=== PATIENT | female | born 1995 | race American Indian/Alaskan Native ===

== ENCOUNTER 2016-03-14 16:36 | Emergency (ER) | payer OTHER ==
[2016-03-14 17:06] VITALS: BP 133/52
[2016-03-14 18:01] LABS: Bacteria,Urine 2+ /HPF (Negative); Bilirubin,Urine NEG (Negative); Blood,Urine NEG (Negative); Ketones,Urine NEG (Negative); Leukocyte Esterase,Urine LG (Negative); Mucus,Urine FEW /HPF; Nitrite,Urine NEG (Negative); Protein,Urine <15 mg/dL mg/dL (Negative)
[2016-03-14] MEDS ORDERED: ROCEPHIN IM ONE (18:29)
[2016-03-14] MEDS ORDERED: ZITHROMAX PO ONE (18:29)
[2016-03-14] MEDS ORDERED: XYLOCAINE 1% MPF 5 mL INFILTRATI ONE (18:29)
--- NOTE | 2016-03-14 18:35 | Emergency Department Report ---
ED Female HPI - General Chief complaint: Urogenital-Female Stated complaint: VAGINAL ITCHING/DISCHARGE Time Seen by Provider: 03/14/16 18:13 Source: patient Mode of arrival: Ambulatory Limitations: No Limitations - History of Present Illness Initial comments: Patient complains of "cottage cheese-like" discharge from her vaginal 1 week. Reports associated vaginal itching and burning, and lower pelvic pain. Denies fever, chills, flank pain, dysuria, urgency frequency. States took clindamycin left over that was prescribed to her over a year ago without relief. Report sexual activity with men only. LMP 02/20/16 - Related Data Previous Rx's Medication Instructions Recorded Last Taken Type Doxycycline [Vibramycin CAP] 100 mg PO Q12HR #14 capsule 03/14/16 Unknown Rx Fluconazole [Diflucan TAB] 150 mg PO ONCE #2 tablet 03/14/16 Unknown Rx Allergies Allergy/AdvReac Type Severity Reaction Status Date / Time No Known Allergies Allergy Verified 01/03/16 05:07 ED Review of Systems ROS: Stated complaint: VAGINAL ITCHING/DISCHARGE Other details as noted in HPI Comment: All other systems reviewed and negative ED Past Medical Hx - Past Medical History Previous Medical History?: No - Surgical History Past Surgical History?: No - Social History Smoking Status: Never Smoker Substance Use Type: None - Medications Home Medications: Home Medications Medication Instructions Recorded Confirmed Last Taken Type Doxycycline [Vibramycin CAP] 100 mg PO Q12HR #14 capsule 03/14/16 Unknown Rx Fluconazole [Diflucan TAB] 150 mg PO ONCE #2 tablet 03/14/16 Unknown Rx ED Physical Exam - General Limitations: No Limitations General appearance: alert, in no apparent distress - Head Head exam: Present: atraumatic, normocephalic - Eye Eye exam: Present: normal appearance, PERRL, EOMI - Neck Neck exam: Present: normal inspection, full ROM. Absent: tenderness, meningismus, lymphadenopathy - Respiratory Respiratory exam: Present: normal lung sounds bilaterally. Absent: respiratory distress - Cardiovascular Cardiovascular Exam: Present: regular rate, normal rhythm - GI/Abdominal GI/Abdominal exam: Present: soft, tenderness (suprapubic), normal bowel sounds. Absent: distended, guarding, rebound, rigid - Speculum exam: Present: vaginal discharge (thick, white, cottage cheese.). Absent: erythema Bi-manual exam: Absent: cervical motion tendernes, adnexal tenderness, uterine enlargement, uterine tenderness - Extremities Exam Extremities exam: Present: normal inspection, full ROM - Back Exam Back exam: Present: normal inspection, full ROM. Absent: CVA tenderness (R), CVA tenderness (L) - Neurological Exam Neurological exam: Present: alert, oriented X3, normal gait, reflexes normal. Absent: motor sensory deficit - Psychiatric Psychiatric exam: Present: normal affect, normal mood - Skin Skin exam: Present: warm, dry, intact, normal color. Absent: rash, cyanosis, diaphoretic, erythema, petechiae, pallor ED Course Vital Signs 03/14/16 17:00 Temperature 98.2 F Pulse Rate 59 L Blood Pressure 133/52 O2 Sat by Pulse 100 Oximetry Critical care attestation.: If time is entered above; I have spent that time in minutes in the direct care of this critically ill patient, excluding procedure time. ED Disposition Clinical Impression: Urethritis, Vulvovaginal candidiasis Disposition: DISCHARGED TO HOME OR SELFCARE Is pt being admited?: No Does the pt Need Aspirin: No Condition: Stable Instructions: Safe Sex (ED), Urinary Tract Infection in Women (ED), Vulvovaginal Candidiasis (ED) Prescriptions: Doxycycline [Vibramycin CAP] 100 mg PO Q12HR #14 capsule Fluconazole [Diflucan TAB] 150 mg PO ONCE #2 tablet Referrals: PRIMARY CARE,MD [Primary Care Provider] - 3-5 Days [facility] [Outside] - 3-5 Days Forms: STI Treatment and Prevention
== END 2016-03-14 19:12 | disposition home or self-care (01) ==
LOC: ED 16:36
DX: B37.3 Candidiasis of vulva and vagina (principal); B37.41 Candidal cystitis and urethritis
CPT/HCPCS: 81001; 81025; 96372; 99284; J0696

== ENCOUNTER 2017-06-03 04:45 | Inpatient (IN) | payer BC, OTHER ==
[2017-06-03] MEDS ORDERED: LACTATED RINGERS 1,000 ML ONE (05:42)
[2017-06-03] MEDS ORDERED: POLYCILLIN/NS 2 GM/100 ML 2 GM/100 ML BAG IV ONE (06:57)
[2017-06-03 07:14] LABS: Hemoglobin 10.6 gm/dl (10.1-14.3); Mean Corpuscular HGB Conc 32 % (30-34); Mean Corpuscular Volume 71 fl (79-97); Platelet Count 257 K/mm3 (140-440); Red Blood Count 4.67 M/mm3 (3.65-5.03); Red Cell Distribution Width 17.1 % (13.2-15.2)
[2017-06-03 07:17] LABS: Mean Corpuscular Hemoglobin 23 pg (28-32)
[2017-06-03] MEDS ORDERED: SUBLIMAZE ONE (07:29)
[2017-06-03] MEDS: LACTATED RINGERS 1,000 ML IV SCH ×2 (07:32→10:12)
--- NOTE | 2017-06-03 07:36 | History and Physical Report ---
History of Present Illness Date of examination: 06/03/17 Date of admission: 06/03/17 06:59 Chief complaint: Labor History of present illness: Pt is a 21yo BF EDC 06/10/17; EGA 39 0/7 weeks presents to L&D complaining of RUC's q 3-4 mins. She received care at [facility] since 16 weeks and course has been unremarkable. records are available and GBS is Positive. Past History Past Medical History: no pertinent history Past Surgical History: no surgical history Social history: no significant social history, single - Obstetrical History Expected Date of Delivery: 06/10/17 Actual Gestation: 39 Week(s) 0 Day(s) : 1 Medications and Allergies Allergies Allergy/AdvReac Type Severity Reaction Status Date / Time No Known Allergies Allergy Verified 01/03/16 05:07 Home Medications Medication Instructions Recorded Confirmed Last Taken Type Azithromycin 1 tab PO DAILY 06/03/17 06/03/17 Unknown History Terconazole 1 applicatio VG DAILY 06/03/17 06/03/17 Unknown History metroNIDAZOLE [Flagyl TAB] 1 tab PO DAILY 06/03/17 06/03/17 Unknown History Active Meds: Active Medications Butorphanol Tartrate (Stadol) 2 mg IV Q2H PRN PRN Reason: Pain , Severe (7-10) Lactated Ringer's (Lactated Ringers) 1,000 mls @ 125 mls/hr IV DIRECT PATRICIA Last Admin: 06/03/17 07:32 Dose: 125 mls/hr Ampicillin Sodium (Polycillin/Ns 2 Gm/100 Ml) 2 gm in 100 mls @ 100 mls/hr IV ONCE ONE; Protocol Stop: 06/03/17 07:56 Last Admin: 06/03/17 07:32 Dose: 100 mls/hr Ampicillin Sodium (Ampicillin/Ns 1 Gm/50 Ml) 1 gm in 50 mls @ 100 mls/hr IV Q4HR PATRICIA; Protocol Review of Systems All systems: negative - Vital Signs Vital signs: Vital Signs Temp Pulse Resp BP 99.3 F 78 18 130/80 06/03/17 06:05 06/03/17 06:05 06/03/17 06:05 06/03/17 06:05 Temp Pulse Resp BP Pulse Ox 98.6 F 67 18 126/59 06/03/17 07:16 06/03/17 07:17 06/03/17 07:16 06/03/17 07:17 - Physical Exam Breasts: Positive: deferred Cardiovascular: Regular rate Lungs: Positive: Clear to auscultation Abdomen: Positive: normal appearance Genitourinary (Female): Positive: normal external genitalia Vagina: Positive: normal moisture Uterus: Positive: enlarged - Obstetrical FHR: category 1 Uterine Contraction Monitor Mode: External Cervical Dilatation: 4 Cervical Effacement Percentage: 80 station: -2 Uterine Contraction Pattern: Regular Uterine Tone Measurement Phase: Contraction Uterine Contraction Intensity: Moderate Results Result Diagrams: 06/03/17 06:25 Abnormal lab results 06/03/17 Range/Units 06:25 MCV 71 L (79-97) fl MCH 23 L (28-32) pg RDW 17.1 H (13.2-15.2) % All other labs normal. Assessment and Plan - Patient Problems (1) 39 weeks gestation of Onset Date: 06/03/17 Current Visit: Yes Status: Acute Plan to address problem: A: IUP @ 39 0/7 weeks in labor +GBS P: Admit to L&D for expectant vaginal delivery IV Ampicillin
[2017-06-03] MEDS ORDERED: ePHEDrine SULFATE IV PRN ×2 (08:00→10:00)
[2017-06-03] MEDS ORDERED: STADOL IV PRN (08:00)
[2017-06-03] MEDS ORDERED: XYLOCAINE 2% INFILTRATI NR (08:00)
[2017-06-03] MEDS ORDERED: BRETHINE IVP PRN (08:00)
[2017-06-03] MEDS ORDERED: SUBLIMAZE IV PRN (08:00)
[2017-06-03] MEDS ORDERED: MINERAL OIL PO PRN (08:00)
[2017-06-03] MEDS ORDERED: BRETHINE SUB-Q PRN (08:00)
[2017-06-03] MEDS ORDERED: LACTATED RINGERS 1,000 ML IV SCH (08:00)
[2017-06-03] MEDS ORDERED: PITOCin/NS 30 UNIT/500ML 30 UNITS/500 ML BAG IV SCH ×2 (08:00)
[2017-06-03] MEDS ORDERED: PITOCin/NS 20 UNIT/1000ML DRIP 20 UNITS/1,000 ML BAG IV SCH ×2 (08:00→15:00)
--- NOTE | 2017-06-03 09:13 | Anesthesia Consultation ---
Anesthesia Consult and Med Hx Date of service: 06/03/17 - Airway Anesthetic Teeth Evaluation: Good ROM Head & Neck: Adequate Mental/Hyoid Distance: Adequate Intubation Access Assessment: Probably Good - Pre-Operative Health Status ASA Pre-Surgery Classification: ASA2 Proposed Anesthetic Plan: Epidural, Spinal - Pulmonary Hx Asthma: Yes (no inhaler) COPD: No Hx Pneumonia: No - Cardiovascular System Hx Hypertension: No - Central Nervous System Hx Seizures: No Hx Psychiatric Problems: No - Endocrine Hx Renal Disease: No Hx End Stage Renal Disease: No Hx Hypothyroidism: No Hx Hyperthyroidism: No - Hematic Hx Anemia: No Hx Sickle Cell Disease: No - Other Systems Hx Alcohol Use: No
[2017-06-03] MEDS ORDERED: NARCAN 2 MG/2 ML IV PRN (10:00)
[2017-06-03] MEDS ORDERED: fentaNYL-BUPIV 2 MCG/ML-0.125% 200 MCG/100 ML BAG EPIDURAL SCH (10:00)
[2017-06-03] MEDS ORDERED: AMPICILLIN/NS 1 GM/50 ML 1 GM/50 ML BAG IV SCH (11:00)
--- NOTE | 2017-06-03 14:53 | Procedure Note ---
OB Delivery Note - Delivery Date of Delivery: 06/03/17 Surgeon: USMAN CONTRERAS Estimated blood loss: 100cc - Vaginal Delivery presentation: vertex Delivery position: OA Intrapartum events: none Delivery induction: none Delivery augmentation: pitocin Delivery monitor: external FHT, external uterine Route of delivery: Delivery placenta: spontaneous Delivery cord: nuchal cord (x1), 3 umbilical vessels Episiotomy: none Delivery laceration: none Anesthesia: epidural Delivery comments: Infant delivered OA and placed on Mom's chest for [id number] bonding and delayed cord clamping by Dad - Infant A at 1 minute: 9 (2459gms) at 5 minutes: 9 Infant Gender: Male
[2017-06-03] MEDS ORDERED: DULCOLAX PR PRN (14:55)
[2017-06-03] MEDS ORDERED: ZOFRAN IV PRN (14:55)
[2017-06-03] MEDS ORDERED: PHENERGAN PR PRN (14:55)
[2017-06-03] MEDS ORDERED: LANSINOH TP PRN (14:55)
[2017-06-03] MEDS ORDERED: BENADRYL PO PRN (14:55)
[2017-06-03] MEDS ORDERED: NORCO 5/325 PO PRN (14:55)
[2017-06-03] MEDS ORDERED: MILK OF MAGNESIA PO PRN (14:55)
[2017-06-03] MEDS ORDERED: PHENERGAN PO PRN (14:55)
[2017-06-03] MEDS ORDERED: TYLENOL PO PRN (14:55)
[2017-06-03] MEDS ORDERED: TUCKS PAD TP PRN (14:55)
[2017-06-03] MEDS ORDERED: SODIUM CHLORIDE FLUSH SYRINGE 10 ML IV SCH (15:00)
[2017-06-03] MEDS: MOTRIN PO SCH (15:58)
[2017-06-04] MEDS: MOTRIN PO SCH ×5 (00:13→22:15)
[2017-06-04] MEDS: COLACE PO SCH ×3 (00:13→22:14)
[2017-06-04] MEDS: FEOSOL PO SCH ×3 (00:13→22:14)
[2017-06-04 01:23] LABS: Hematocrit 28.3 % (30.3-42.9); Hemoglobin 8.8 gm/dl (10.1-14.3)
[2017-06-04] MEDS: SENOKOT S PO SCH ×3 (05:49→22:14)
[2017-06-04] MEDS ORDERED: BOOSTRIX IM ONE (06:00)
--- NOTE | 2017-06-04 07:39 | Progress Note ---
Assessment and Plan - Patient Problems (1) 39 weeks gestation of Onset Date: 06/03/17 Current Visit: Yes Status: Acute (2) (normal spontaneous vaginal delivery) Onset Date: 06/04/17 Current Visit: Yes Status: Acute Plan to address problem: A: S/P - PPD #1 Doing well Asymptomatic anemia - stable P: May go home tomorrow. Subjective - Subjective Date of service: 06/04/17 Principal diagnosis: s/p - PPD #1 Interval history: Pt is feeling well without complaints. Bleeding improved. Patient reports: appetite normal, voiding normally, pain well controlled, flatus , ambulating normally, no dizzy ambulation, no nauseated : doing well, bottle feeding Objective - Vital Signs Latest vital signs: Vital Signs Temp Pulse Resp BP Pulse Ox 06/04/17 04:40 98.1 F 56 L 18 122/73 06/04/17 00:00 98.1 F 68 20 128/63 06/03/17 20:20 98.6 F 71 20 117/62 06/03/17 18:40 98.9 F 79 20 122/68 06/03/17 14:00 99.0 F 18 06/03/17 13:27 78 132/60 100 06/03/17 13:13 73 132/73 99 06/03/17 12:28 58 L 121/59 100 06/03/17 12:13 76 120/56 99 06/03/17 12:00 18 06/03/17 11:58 64 115/67 99 06/03/17 11:50 98.4 F 18 06/03/17 11:43 71 101/57 99 06/03/17 11:00 18 06/03/17 10:57 100 H 102/53 100 06/03/17 10:42 74 106/56 99 06/03/17 10:27 86 111/61 99 06/03/17 10:12 72 18 109/56 100 06/03/17 10:00 18 06/03/17 09:57 68 113/60 99 06/03/17 09:39 83 18 108/55 99 06/03/17 09:37 83 115/54 06/03/17 09:35 74 122/58 06/03/17 09:33 80 127/58 06/03/17 09:31 102 H 127/62 04/18 09:29 76 122/57 99 06/03/17 09:27 88 125/59 06/03/17 09:25 110 H 122/58 99 06/03/17 09:23 86 121/64 06/03/17 09:19 87 132/75 99 06/03/17 09:17 71 128/64 06/03/17 09:14 66 115/60 99 06/03/17 09:12 69 108/64 06/03/17 09:11 68 109/58 06/03/17 09:09 85 109/55 98 06/03/17 09:06 65 114/58 99 06/03/17 09:04 77 114/56 99 06/03/17 09:02 77 117/58 06/03/17 09:00 97 H 125/67 99 06/03/17 08:58 103 H 18 124/70 99 06/03/17 08:57 71 125/57 98 06/03/17 08:51 18 137/64 98 06/03/17 08:20 66 117/62 Intake and Output 06/03/17 06/04/17 06/04/17 22:59 06:59 14:59 Intake Total 200 240 Output Total 300 400 Balance -100 -160 Intake: Oral 200 240 Output: Urine 300 400 Indwelling Catheter 400 Void 300 Other: Total, Intake Amount 200 240 Total, Output Amount 300 400 Estimated Blood Loss 100 - Exam Breasts: Present: deferred Cardiovascular: Present: Regular rate Lungs: Present: Clear to auscultation Abdomen: Present: normal appearance, soft Uterus: Present: normal, firm, fundal height below umbilicus Extremities: Present: normal - Labs Labs: Abnormal lab results 06/04/17 Range/Units 01:07 Hgb 8.8 L (10.1-14.3) gm/dl Hct 28.3 L (30.3-42.9) % Laboratory Tests 06/03/17 06/03/17 06/03/17 06:25 06:25 06:25 WBC 10.4 RBC 4.67 Hgb 10.6 Hct 33.0 MCV 71 L MCH 23 L MCHC 32 RDW 17.1 H Plt Count 257 RPR Nonreactive Blood Type B POSITIVE Antibody Screen Negative 06/04/17 01:07 WBC RBC Hgb 8.8 L Hct 28.3 L MCV MCH MCHC RDW Plt Count RPR Blood Type Antibody Screen
[2017-06-04] MEDS: PRENATAL VITAMIN PO SCH (10:03)
--- NOTE | 2017-06-04 13:54 | Discharge Summary ---
Providers - Providers Date of Admission: 06/03/17 06:59 Date of discharge: 06/05/17 Attending physician: USMAN CONTRERAS Primary care physician: USMAN CONTRERAS Hospitalization Reason for admission: active labor, IUP at term Delivery: Episiotomy: none Laceration: none Other procedures: none complications: none Discharge diagnosis: IUP at term delivered [place] baby: male Hospital course: Unremarkable. Condition at discharge: Good Disposition: DC-01 TO HOME OR SELFCARE - Discharge Diagnoses (1) 39 weeks gestation of Status: Resolved (2) (normal spontaneous vaginal delivery) Status: Resolved Plan - Discharge Medications Prescriptions: Ferrous Sulfate [Feosol 325 MG tab] 325 mg PO BID #60 tablet Ibuprofen [Motrin 600 MG tab] 600 mg PO Q6HR #30 tablet Vit-Fe Fumar-FA [ Vitamin] 1 each PO QDAY #30 tablet - Provider Discharge Summary Activity: routine, no sex for 6 weeks, no heavy lifting 4 weeks, no strenuous exercise Diet: routine Instructions: routine Additional instructions: [] Smoking cessation referral if applicable(refer to patient education folder for contact #) [] Refer to [facility] Booklet Call your doctor immediately for: * Fever > 100.5 * Heavy vaginal bleeding ( >1 pad per hour) * Severe persistent headache * Shortness of breath * Reddened, hot, painful area to leg or breast * Drainage or odor from incision. * Keep incision clean and dry at all times and follow doctor's instructions regarding bathing/showering - Follow up plan Follow up: USMAN CONTRERAS MD [Primary Care Provider] - 6 Weeks STEPHANIE TORRES CNM [Advanced Practice Nurse] - 6 Weeks
[2017-06-04] MEDS ORDERED: M-M-R II VACCINE SUB-Q ONE (14:55)
[2017-06-05] MEDS: MOTRIN PO SCH ×3 (04:55→11:32)
[2017-06-05] MEDS: FEOSOL PO SCH (11:32)
[2017-06-05] MEDS: PRENATAL VITAMIN PO SCH (11:32)
[2017-06-05] MEDS: COLACE PO SCH (11:32)
[2017-06-05 14:36] VITALS: BP 116/46
== END 2017-06-05 12:44 | disposition home or self-care (01) | DRG 775 ==
LOC: TRG 04:45 → LD 04:46 → TRG 06:58 → LD 06:59 → OB 18:47
PROVIDERS: ADMIT Obstetrics & Gynecology; ATTEND Obstetrics & Gynecology
PROC: 10E0XZZ Delivery of Products of Conception, External Approach (ICD-10-PCS; principal; 2017-06-03)
PROC: 3E0R3BZ Introduction of Anesthetic Agent into Spinal Canal, Percutaneous Approach (ICD-10-PCS; 2017-06-03)
PROC: 00HU33Z Insertion of Infusion Device into Spinal Canal, Percutaneous Approach (ICD-10-PCS; 2017-06-03)
PROC: 3E0234Z Introduction of Serum, Toxoid and Vaccine into Muscle, Percutaneous Approach (ICD-10-PCS; 2017-06-04)
DX: O99.824 Streptococcus B carrier state complicating childbirth (principal); O69.81X0 Labor and delivery complicated by cord around neck, without compression, not applicable or unspecified; Z3A.39 39 weeks gestation of pregnancy; Z37.0 Single live birth; Z23 Encounter for immunization; O99.52 Diseases of the respiratory system complicating childbirth; J45.909 Unspecified asthma, uncomplicated; O90.81 Anemia of the puerperium; D64.9 Anemia, unspecified
CPT/HCPCS: 36415; 85014; 85018; 85027; 86592; 86850; 86900; 86901; 99211; A6250; G0463; J0290; J2590; J3010; J7120